=== PATIENT | female | born 1955 | race Caucasian/White ===

== ENCOUNTER 2021-03-15 13:54 | Emergency (ER) | payer MEDICARE, SELFPAY ==
[2021-03-15 13:54] VITALS: BP 145/83; PULSE 85; RESP 18; TEMP 36.4; O2SAT 97; BMI 23.3
[2021-03-15 13:55] VITALS: BP 145/83; PULSE 85; RESP 18; TEMP 36.4; O2SAT 97
--- NOTE | 2021-03-15 14:32 | EX.ED.DYSGE1 ---
HPI History of Present Illness Chief Complaint: General Illness Narrative Narrative: 66-year-old female presenting with chills, body aches, fatigue, mild cough. Patient denies any chest pain or shortness of breath. Patient states her currently has a cough that is very bad. She relates that hers is only mild. She has decreased p.o. intake because she does not feel hungry. She is able to eat and drink without vomiting. No diarrhea. No urinary symptoms. Patient states that she has not been tested for Covid since her symptoms started 1 week ago. She states her was tested and was negative. She does relate that sometimes she gets a little lightheaded when walking. She has not fallen. She is able to walk with a stable gait. PFSH PFSH Medical History no medical history Home Medications ondansetron 4 mg PO Q8H PRN PRN #10 tab 03/15/21 [Rx Last Taken Unknown] Allergy/AdvReac Type Severity Reaction Status Date / Time codeine Allergy Hives Verified 03/15/21 14:22 meperidine [From Demerol] Allergy Hives Verified 03/15/21 14:22 Penicillins [PCN] Allergy Hives Verified 03/15/21 14:22 adhesive AdvReac Other Verified 03/15/21 14:22 Social History Smoking Status: Never smoker ROS ROS ED Constitutional Constitutional ED: Reports chills; Denies fever(s) or sweats Eyes Eyes: Denies blurry vision or diplopia Cardiovascular Cardiovascular: Denies chest pain, palpitations or racing heartbeat Respiratory/Chest Respiratory/Chest: Reports cough; Denies dyspnea or sputum Gastrointestinal Gastrointestinal: Reports nausea; Denies abdominal pain, diarrhea or vomiting Genitourinary Genitourinary ED: Denies dysuria or hematuria Musculoskeletal Musculoskeletal: Reports myalgias; Denies arthralgias or neck pain Integumentary Reports rash; Denies Abrasions Neurologic Neurologic: Reports headache(s); Denies paresthesias EXAM Physical Exam Const Vital Signs: 03/15/21 13:54 03/15/21 13:55 Temperature 97.6 F L 97.6 F L Temperature Source Temporal Temporal Pulse Rate 85 85 Respiratory Rate 18 18 Blood Pressure 145/83 H 145/83 H Blood Pressure Mean 103 103 Pulse Ox 97 97 Oxygen Delivery Method Room Air Room Air Positive well nourished General Appearance ED: NAD; Negative for pallor HEENT Reports normocephalic, head/scalp atraumatic and moist mucous membranes Eyes PERRL and EOMs intact bilaterally Neck no lymphadenopathy and supple Chest Wall inspection of chest normal and palpation of chest normal Resp normal respiratory effort and clear to auscultation bilaterally Auscultation: Negative for rales, rhonchi or wheezes Cardio regular rate and regular rhythm GI normal to inspection, nondistended, normoactive bowel sounds and non-distended Auscultation: normoactive bowel sounds Palpation: soft Narrative: Deferred Extremity normal to inspection General Extremety ED: Yes edema and tenderness General Extremity: edema Neuro oriented x3 and CN's II-XII intact bilaterally Sensorium / Orientation: alert Motor Exam: strength 5/5 throughout Psych mental status grossly normal Attitude: No agitated Skin no rashes or lesions noted and no wounds General Skin Exam: Negative for jaundice or pallor MDM MDM MDM Narrative Medical decision making narrative: Patient presenting on day 7 of symptoms of mild cough, fatigue, body aches. Patient states she may have some mild nausea but really just does not have an appetite and she is lost her sense of taste. She reports no fevers. She is able to ambulate although sometimes she is lightheaded. Her vital signs are stable and she is afebrile. Her oxygen saturation is 97% and respiratory rate is 18. Her pulse is 85. On exam patient appears to be well-hydrated. Lungs are clear to auscultation, heart regular rate and rhythm. I counseled patient that I could test her for COVID-19 but I need to do the PCR test given that it has been a week. Based on her presentation and physical exam I do not believe she needs blood work or imaging at this time. I will provide her with some nausea medication for home so that she can try to stay hydrated. She is given return precautions. Impression: 1. viral syndrome Discharge Plan Triage Chief Complaint: General Illness ED Provider: Adam Leung Dx/Rx/DC Orders Instructions: Coronavirus Disease 2019 (COVID-19): Caring for Yourself or Others Prescriptions: New ondansetron 4 mg tablet,disintegrating 4 mg PO Q8H PRN PRN (Reason: Nausea) Qty: 10 RF: 0 Referrals: Bonnie Higgins MD [STAFF PHYSICIAN] - As Needed Disposition Disposition: Home, Self Care
[2021-03-15] MEDS: Ondansetron ODT 4 MG Tablet PO (14:42)
== END 2021-03-15 15:28 | disposition home or self-care (01) ==
PROVIDERS: Emergency Provider Student in an Organized Health Care Education/Training Program; PCP Family Medicine
DX: U07.1 COVID-19 (principal); R42 Dizziness and giddiness
CPT/HCPCS: 87635; 99283; U0005; U0003